=== PATIENT | female | born 2005 | race African-American/Black ===

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

== ENCOUNTER 2024-08-26 11:09 | Outpatient (CLI) | payer OTHER | END 2024-08-26 11:10 | disposition home or self-care (01) | LOC: CSHULT 11:09 | DX: Z33.1 Pregnant state, incidental (principal); Z3A.20 20 weeks gestation of pregnancy | CPT/HCPCS: 76805 ==

== ENCOUNTER 2024-10-20 11:21 | Inpatient (IN) | payer OTHER ==
[2024-10-20] MEDS ORDERED: Calcium Gluc 4.6 MEQ/10 ML (100 MG/ML) SLOW IVP PRN (12:21)
[2024-10-20] MEDS ORDERED: HYDROcodone/Acetaminophen 5/325 mg Tablet PO PRN (12:21)
[2024-10-20] MEDS ORDERED: Labetalol HCl 100 MG/20 ML VIAL SLOW IVP PRN (12:21)
[2024-10-20] MEDS ORDERED: fentaNYL 50 mcg/mL 1 mL Vial SLOW IVP PRN (12:21)
[2024-10-20] MEDS ORDERED: Ibuprofen 800 MG TAB PO PRN (12:21)
[2024-10-20] MEDS ORDERED: Ondansetron PF 4 MG/2 ML Vial IVP PRN (12:21)
[2024-10-20] MEDS ORDERED: Lorazepam 2 MG/ML VIAL SLOW IVP PRN (12:21)
[2024-10-20] MEDS ORDERED: Diphenoxylate HCl/Atropine Tablet PO PRN (12:21)
[2024-10-20] MEDS ORDERED: Promethazine HCl 25 MG/ML VIAL IM PRN (12:21)
[2024-10-20] MEDS ORDERED: Carboprost 250 MCG/ML AMP IM PRN (12:21)
[2024-10-20] MEDS ORDERED: hydrALAZINE 20 MG/ML VIAL SLOW IVP PRN (12:21)
[2024-10-20] MEDS ORDERED: Misoprostol 200 MCG TAB PR PRN (12:21)
[2024-10-20] MEDS ORDERED: Acetaminophen 500 MG TAB PO PRN (12:21)
[2024-10-20] MEDS ORDERED: Tranexamic Acid 1,000 MG/10 ML VIAL IVP PRN (12:21)
[2024-10-20] MEDS ORDERED: Lidocaine 1% (PF) 30 ML VIAL SC PRN (12:21)
[2024-10-20] MEDS ORDERED: Oxytocin 30 units/NS 500 ML 500 ML IV SCH ×2 (12:30)
[2024-10-20] MEDS: Lactated Ringer's 1,000 ML IV SCH (12:33)
[2024-10-20] MEDS: hydrALAZINE 20 MG/ML VIAL SLOW IVP PRN ×2 (12:33→13:01)
[2024-10-20 13:23] LABS: Platelet Count 104 10x3/uL (150-450)
[2024-10-20 13:24] LABS: Hematocrit 31.7 % (34.9-44.5); Hemoglobin 9.8 g/dL (12.0-15.5); Mean Corpuscular HGB CONC 30.9 g/dL (32.0-36.0); Mean Corpuscular Hemoglobin 24.4 pg (27.0-33.0); Mean Corpuscular Volume 79.1 fL (81.6-98.3); RBC Distribution Width 14.7 % (11.5-14.5); Red Blood Cell (RBC) Count 4.01 10x6/uL (3.90-5.03); White Blood Cell (WBC) Count 6.65 10x3/uL (3.5-10.5)
[2024-10-20 13:28] VITALS: BMI 23.1
[2024-10-20] MEDS: Magnesium Sulfate 20 gm/500 ml 20 GM/500 ML BAG IVPB SCH (13:36)
[2024-10-20 13:48] LABS: ALT (SGPT) Less than 7 U/L (Less than 34); AST (SGOT) 15 U/L (11-34); Albumin 3.2 g/dL (3.1-4.5); Alkaline Phosphatase 147 U/L (40-100); Anion Gap 12 mmol/L (10-20); BUN (Urea Nitrogen) 6 mg/dL (7.0-18.7); Bilirubin, Total 0.5 mg/dL (0.3-1.2); Calc. Creatinine Clearance 164 mL/min (70-130); Calcium 9.1 mg/dL (7.8-10.44); Carbon Dioxide 22 mmol/L (22-29); Chloride 107 mmol/L (98-107); Estimated GFR 133; Globulin 3.6 g/dL (2.4-3.5); Glucose 73 mg/dL (70-105); Potassium 3.7 mmol/L (3.5-5.1); Protein, Total 6.8 g/dL (6.0-8.3); Sodium 137 mmol/L (136-145)
[2024-10-20 13:48] LABS: INR-International Normal Ratio 0.9; PTT 24.3 sec (22.0-33.0); Prothrombin Time 9.9 sec (9.5-12.1)
[2024-10-20 14:04] LABS: HBsAg Index 0.36 S/CO (0-0.99); Hep B Surf Ag - L&D Non-Reactive S/CO (NonReactive)
[2024-10-20 14:31] LABS: Syphilis Antibody Nonreactive (Nonreactive); Syphilis Antibody Index 0.06 S/CO (<1.00 Non-Reactive)
[2024-10-20 14:38] LABS: Creatinine, Urine 14.66 mg/dL (16.00-327.00); Protein, Urine Random Quant Less than 10 mg/dL (1-14)
[2024-10-20] MEDS: Labetalol HCl 100 MG/20 ML VIAL SLOW IVP PRN (15:55)
[2024-10-20] MEDS: Misoprostol 100 MCG TAB VAG SCH (16:39)
[2024-10-20] MEDS: Labetalol HCl 100 MG TAB PO SCH (16:44)
[2024-10-21] MEDS ORDERED: Penicillin G 2.5 MILL.units 2.5 MILL.UNITS in Premix 1 BAG IVPB SCH (03:00)
[2024-10-21 03:19] LABS: Magnesium 4.9 mg/dL (1.7-2.2)
[2024-10-21] MEDS: Penicillin G Potassium 5 MILL.UNITS in Sodium Chloride 0.9% 100 ML IVPB SCH (07:54)
[2024-10-21] MEDS: Penicillin G Potassium 5 MILL.UNITS VIAL ONE (07:55)
[2024-10-21] MEDS: Oxytocin 30 units/NS 500 ML 500 ML IV SCH (07:55)
[2024-10-21] MEDS ORDERED: Ondansetron PF 4 MG/2 ML Vial IVP PRN (12:28)
[2024-10-21] MEDS ORDERED: Milk Of Magnesia 30 ML UDCUP PO PRN (12:28)
[2024-10-21] MEDS ORDERED: Promethazine HCl 25 MG/ML VIAL IM PRN (12:28)
[2024-10-21] MEDS ORDERED: hydrALAZINE 20 MG/ML VIAL SLOW IVP SCH (12:28)
[2024-10-21] MEDS ORDERED: diphenhydrAMINE 25 MG CAP PO PRN (12:28)
[2024-10-21] MEDS ORDERED: Lanolin Ointment 7 GM TUBE TOP PRN (12:28)
[2024-10-21] MEDS ORDERED: Benzocaine-Menthol 82.5 ML CAN TOP PRN (12:28)
[2024-10-21] MEDS ORDERED: Bisacodyl 10 MG SUPP PR PRN (12:28)
[2024-10-21] MEDS ORDERED: HYDROcodone/Acetaminophen 5/325 mg Tablet PO PRN (12:28)
[2024-10-21] MEDS: Ferrous Sulfate 325 MG TAB PO SCH (17:00)
[2024-10-21] MEDS: Ibuprofen 800 MG TAB PO SCH (17:00)
[2024-10-21] MEDS: Docusate 100 MG CAP PO SCH (21:57)
[2024-10-22] MEDS: Ibuprofen 800 MG TAB PO SCH (00:23)
[2024-10-22] MEDS: Prenatal Vitamin 1 TAB PO SCH (09:08)
[2024-10-23] MEDS: Labetalol HCl 200 MG TAB PO SCH (16:15)
[2024-10-23] MEDS: Boostrix 0.5 ML (Tdap) VIAL (>/=7 yrs of age) IM ONE (20:42)
[2024-10-24 08:19] VITALS: TEMP 98
[2024-10-24 15:59] VITALS: BP 129/83
== END 2024-10-24 17:05 | disposition home or self-care (01) | DRG 807 ==
LOC: OBSVTOIN 11:21 → CSHLD 11:21 → CSHPP 10-21 12:20
PROVIDERS: ADMIT Family Medicine; ATTEND Family Medicine
PROC: 10E0XZZ Delivery of Products of Conception, External Approach (ICD-10-PCS; principal; 2024-10-22)
PROC: 3E0P7VZ Introduction of Hormone into Female Reproductive, Via Natural or Artificial Opening (ICD-10-PCS; 2024-10-22)
DX: O14.94 Unspecified pre-eclampsia, complicating childbirth (principal); Z37.0 Single live birth; Z3A.37 37 weeks gestation of pregnancy; O76 Abnormality in fetal heart rate and rhythm complicating labor and delivery
CPT/HCPCS: 36415; 51702; 80053; 82570; 83735; 84156; 85027; 85610; 85730; 86780; 86850; 86900; 86901; 87340; J0360; J2540; J2590; J3475; J7120